=== PATIENT | female | born 1950 | race Caucasian/White ===

== ENCOUNTER 2017-09-20 16:01 | Emergency (ER) | payer OTHER ==
[~2017-09-20] VITALS: Ht 162.6 cm; Wt 72.6 kg
--- NOTE | 2017-09-20 16:08 | NUR ---
recieved pt in ED bed 14. Pt was bb [id number] from work for nosebleed to right nare. actively bleeding~minimal only. pt denies pain. nad vss rr even and unlabroed. skin is warm and non diaphoretic. pending er md leong. pt is a/ox4.
--- NOTE | 2017-09-20 17:30 | NUR ---
packing applied by provider to right nare. pt tolerated procedure
[2017-09-20 17:45] VITALS: BP 135/66
[2017-09-20 17:46] LABS: BASOPHILS # (AUTO) 0.1 /CMM (0.0-0.2); EOSINOPHILS % (AUTO) 0.8 % (0.0-6.0); HEMATOCRIT 39 % (33-45); LYMPHOCYTES # (AUTO) 1.5 /CMM (0.8-4.8); LYMPHOCYTES % (AUTO) 23.3 % (20.0-44.0); MEAN CORPUSCULAR HGB CONC 33 g/dl (31.0-36.0); MEAN CORPUSCULAR VOLUME 86 fL (82-100); MONOCYTES # (AUTO) 0.4 /CMM (0.1-1.30); MONOCYTES % (AUTO) 6.4 % (2.0-12.0); NEUTROPHILS # (AUTO) 4.2 /CMM (1.8-8.9); NEUTROPHILS % (AUTO) 68.5 % (43.0-81.0); PLATELET COUNT (AUTO) 209 /CMM (150-450); RDW COEFFICIENT OF VARIATION 12.6 (11.5-15.0); RED BLOOD CELL COUNT(AUTO) 4.54 MIL/uL (4.0-5.2); WHITE BLOOD COUNT (AUTO) 6.3 K/uL (4.3-11.0)
[2017-09-20 17:53] LABS: CALCIUM, SERUM 9.3 mg/dL (8.5-10.1); CREATININE 0.6 mg/dL (0.6-1.3); POTASSIUM 3.6 mmol/L (3.5-5.1)
[2017-09-20 17:59] LABS: INR 0.93 (0.85-1.15)
--- NOTE | 2017-09-20 18:10 | NUR ---
pending discahrge. Awaiting for discharge papers. pt is aware.
--- NOTE | 2017-09-20 18:21 | NUR ---
pt is not in her room. Pt left without her discharge papers.
== END 2017-09-20 18:23 | disposition home or self-care (01) ==
LOC: ER 16:03
DX: R04.0 Epistaxis (principal)
CPT/HCPCS: 36415; 80048-TC; 85025-TC; 85730-TC; A4606; Z7610